=== PATIENT | female | born 1970 ===

== ENCOUNTER 2024-04-02 12:32 | Outpatient (REF) | payer OTHER, SELFPAY | END 2024-04-02 12:33 | disposition home or self-care (01) | LOC: HO.SH 12:32 | PROVIDERS: Visit Provider Student in an Organized Health Care Education/Training Program | DX: Z01.118 Encounter for examination of ears and hearing with other abnormal findings (principal); H90.42 Sensorineural hearing loss, unilateral, left ear, with unrestricted hearing on the contralateral side; H93.12 Tinnitus, left ear | CPT/HCPCS: 92557; 92567 ==

== ENCOUNTER 2024-04-09 14:09 | Outpatient (REF) | payer SELFPAY | END 2024-04-09 14:10 | disposition home or self-care (01) | LOC: HO.HAP 14:09 | PROVIDERS: Visit Provider Student in an Organized Health Care Education/Training Program | DX: Z13.89 Encounter for screening for other disorder (principal) ==

== ENCOUNTER 2024-04-30 07:58 | Outpatient (REF) | payer SELFPAY ==
--- NOTE | 2024-04-30 12:54 | MHC.AU.MED ---
Medical Clearance for Hearing Instrumentation Date: 04/30/24 Patient Name: Isabel Garcia Date of : 1970 Primary Care Provider: Referring Provider: Delaney Moore MD We have seen your patient on 04/30/24 and have determined that they are a candidate for amplification (See accompanying report). Specifically, they would benefit from: Hearing aid use in the left ear There is a statute that addresses Medical Evaluation Requirements prior to fitting a patient with a hearing aid. According to [place] statute 265 CMR:6.03(1), (a) General. Except as provided in 265 CMR 6.03(1)(b), a deaf and hard of hearing teacher shall not sell a hearing aid unless the prospective user has presented to the deaf and hard of hearing teacher a written statement signed by a licensed physician that states that the patient's hearing loss has been medically evaluated and the patient may be considered a candidate for a hearing aid. The medical evaluation must have taken place within the preceding six months. Please note: Due to the [place] Statute referenced above, we cannot accept a signature other than that of a licensed physician. [employer] and PA signatures cannot be accepted. I am in agreement with the above recommendation. There is no medical contraindication for hearing instrumentation. Physician Signature Date Physician Name (Printed)
== END 2024-04-30 07:59 | disposition home or self-care (01) ==
LOC: HO.HAP 07:58
PROVIDERS: Visit Provider Student in an Organized Health Care Education/Training Program
DX: Z46.1 Encounter for fitting and adjustment of hearing aid (principal); H90.42 Sensorineural hearing loss, unilateral, left ear, with unrestricted hearing on the contralateral side
CPT/HCPCS: 92590

== ENCOUNTER 2024-05-16 14:58 | Outpatient (REF) | payer SELFPAY | END 2024-05-16 14:59 | disposition home or self-care (01) | LOC: HO.HAP 14:58 | PROVIDERS: Visit Provider Student in an Organized Health Care Education/Training Program | DX: Z46.1 Encounter for fitting and adjustment of hearing aid (principal); H90.42 Sensorineural hearing loss, unilateral, left ear, with unrestricted hearing on the contralateral side | CPT/HCPCS: V5257; V5299 ==

== ENCOUNTER 2024-06-12 07:58 | Outpatient (REF) | payer SELFPAY | END 2024-06-12 07:59 | disposition home or self-care (01) | LOC: HO.HAP 07:58 | PROVIDERS: Visit Provider Student in an Organized Health Care Education/Training Program | DX: Z13.89 Encounter for screening for other disorder (principal) ==